=== PATIENT | female | born 1970 | race Caucasian/White ===

== ENCOUNTER 2017-11-16 00:30 | Emergency (ER) | payer BC ==
[~2017-11-16] VITALS: Ht 167.6 cm; Wt 93.2 kg
[2017-11-16 00:34] VITALS: BP 134/91
== END 2017-11-16 01:16 | disposition home or self-care (01) ==
LOC: ER 00:31
DX: S20.219A Contusion of unspecified front wall of thorax, initial encounter (principal); E03.9 Hypothyroidism, unspecified; V49.9XXA Car occupant (driver) (passenger) injured in unspecified traffic accident, initial encounter; Y93.89 Activity, other specified; Y92.410 Unspecified street and highway as the place of occurrence of the external cause; Y99.8 Other external cause status
CPT/HCPCS: 99283